=== PATIENT | female | born 1980 | race Caucasian/White ===

== ENCOUNTER 2020-04-04 08:47 | Outpatient (CLI) | payer BC, SELFPAY ==
[2020-04-06 18:52] LABS: Patient Race White; SARS-CoV-2 RNA Undetected (Undetected); SARS-CoV-2 Specimen Source Nasal
== END 2020-04-04 09:07 ==
PROVIDERS: PCP Internal Medicine; Visit Provider Internal Medicine
DX: Z20.828 Contact with and (suspected) exposure to other viral communicable diseases (principal)
CPT/HCPCS: U0003

== ENCOUNTER 2022-04-26 14:53 | Emergency (ER) | payer BC, SELFPAY ==
[2022-04-26 15:49] VITALS: BP 130/89; PULSE 117; RESP 22; TEMP 36.7; O2SAT 100
--- NOTE | 2022-04-26 16:28 | W.ED.GENAD ---
Discharge Plan Disposition Patient Disposition: Home Condition: Stable Discharge Details Clinical Impression: Pain, dental Primary Care Provider: Angie Walters ED Provider: Vini Jessica Home Meds and New Rx's Prescriptions: New clindamycin HCl 300 mg capsule 300 mg PO TID 10 Days Qty: 30 0RF Continued ibuprofen [Advil] 100 MG tablet PRN PRN ibuprofen 600 MG tablet 600 mg PO QID PRN PRN (Reason: FEVER/PAIN) Qty: 30 0RF tramadol 50 MG tablet 50 mg PO QID PRN PRNQty: 10 0RF Discontinued cephalexin 500 MG capsule 500 mg PO BID Qty: 20 0RF Discharge Instructions Instructions: Toothache (ED) Additional Instructions: Clindamycin as directed. Cool and/or warm compresses as tolerated. [id number] medications such as Tylenol, Motrin, Orajel, as directed. Salt water swish and spit as tolerated. Please watch for new or worsening symptoms and return to the ER for any concerns. Lastly, follow-up with your dentist on Friday. Medical Decision Making This is a 41-year-old female, non-smoker, otherwise healthy, presents for right upper posterior dental pain that began Friday, was originally controlled with ibuprofen but now is not. She took 400 mg of ibuprofen. Clinically she appears well, nontoxic, afebrile, no trismus, airway is patent. Patient would prefer to use [id number] medication for discomfort, we discussed increasing dose of ibuprofen and adding on Tylenol as well as [id number] Orajel. May also use salt water swish and spit. We will place the patient on an antibiotic for potential infection and recommend dental follow-up on Friday. Standard discharge and return precautions were provided. Patient understands, is agreeable to this plan, and has no additional questions or concerns upon discharge. This documentation was generated using [employer] system, please disregard any oddities of phrase or misspellings. Medical Records Medical records reviewed: Yes I reviewed the patient's medical records. HPI General Mode of arrival: ambulatory. Date/Time Provider Initiated Documentation: 04/26/22 15:59. Limitations to Documentation: no limitations. Information obtained by: patient. HPI Narrative: This is a 41-year-old female, otherwise healthy, non-smoker, presenting for superior right posterior most tooth pain that began Friday suddenly, ibuprofen helped, pain has now come back over the past 24 hours, made worse with eating. Denies any fever, obvious trauma, sore throat, facial swelling. Patient unable to see a dentist because of the holidays. Reports taking 400 mg ibuprofen Related Data Home Medications Medication Instructions Recorded Confirmed ibuprofen 100 mg tablet (Advil) PRN PRN 07/03/15 07/03/15 ibuprofen 600 mg tablet 600 mg PO QID PRN PRN FEVER/PAIN 07/03/15 #30 tabs tramadol 50 mg tablet 50 mg PO QID PRN PRN #10 tabs 07/03/15 clindamycin HCl 300 mg capsule 300 mg PO TID 10 days #30 caps 04/26/22 Previous Rx's Medication Instructions Recorded ibuprofen 600 mg tablet 600 mg PO QID PRN PRN FEVER/PAIN 07/03/15 #30 tabs tramadol 50 mg tablet 50 mg PO QID PRN PRN #10 tabs 07/03/15 clindamycin HCl 300 mg capsule 300 mg PO TID 10 days #30 caps 04/26/22 Allergies Allergy/AdvReac Type Severity Reaction Status Date / Time insect venom AdvReac Unverified 07/03/15 07:10 General Stated Complaint: DentalOral BREANNA: 3 Review of Systems Constitutional Constitutional: Denies fever(s) and Denies headache(s) ENT Ears, Nose, Mouth, and Throat: Denies headache(s), Reports mouth pain and Denies sore throat Integumentary/Breasts Skin/Breast: Denies rash Neurologic Neurologic: Denies headache(s) PFSH All Active Problems Pain, dental (Acute) Social History Smoking/Tobacco Use Status: Never Smoking risk assessment performed?: Yes Drug use: Never Exam Const General: cooperative, healthy appearing, comfortable and no acute distress Orientation: alert and awake [facility] Head: normal to inspection, normocephalic and atraumatic Ears: external ears normal, TM's normal bilaterally and EAC's normal General nose exam: external nose normal Face and sinus: normal facial exam Mouth: oral mucosae normal and moist mucous membranes Teeth image: 1. Pain to palpation. Tooth looks unremarkable. There is no localized buccal mucosal swelling or induration. No pointing abscess. No trismus. Airway is patent. Throat: posterior oropharynx normal Eyes Conjunctivae: conjunctivae normal Neck Neck: normal visual inspection, full ROM, no meningeal signs, trachea midline and supple Resp Effort & Inspection: normal respiratory effort and able to speak in complete sentences Skin General skin exam: no rashes or lesions noted Neuro General: patient alert, patient awake, moves all extremities and no focal motor deficits Cognition: normal cognition Speech: speech normal Gait: normal gait Sensory Exam: no sensory deficits noted Psych Appearance: grossly normal Mental Status: mental status grossly normal Course Vital Signs Vital signs: Vital Signs Temperature 36.7 C 04/26/22 15:49 Pulse 117 H 04/26/22 15:49 Respiratory Rate 22 04/26/22 15:49 Blood Pressure 130/89 04/26/22 15:49 Pulse Oximetry 100 04/26/22 15:49 Temperature 36.7 C 04/26/22 15:49 Pulse 117 H 04/26/22 15:49 Respiratory Rate 22 04/26/22 15:49 Blood Pressure 130/89 04/26/22 15:49 Blood Pressure Position Sitting 04/26/22 15:49 Pulse Oximetry 100 04/26/22 15:49 Pain Level 7 04/26/22 15:49
[2022-04-26] MEDS: Clindamycin 300 MG CAP PO (16:40)
== END 2022-04-26 16:46 | disposition home or self-care (01) ==
PROVIDERS: Emergency Provider Physician Assistant; PCP Internal Medicine
DX: K08.89 Other specified disorders of teeth and supporting structures (principal)
CPT/HCPCS: 99283